=== PATIENT | female | born 1990 | race African-American/Black ===

== ENCOUNTER → 2016-06-11 | Outpatient (REF) | payer OTHER ==
[2016-06-11 13:43] LABS: ANION GAP 9 MEQ/L (8-16); BLOOD UREA NITROGEN 12 MG/DL (7-18); CARBON DIOXIDE LEVEL 26 MEQ/L (21-32); CHLORIDE LEVEL 105 MEQ/L (98-107); GLOMERULAR FILTRATION RATE > 60.0 (>60); GLUCOSE, FASTING 88 MG/DL (70-105); POTASSIUM SERUM 4.6 MEQ/L (3.5-5.1); SODIUM LEVEL 140 MEQ/L (136-145)
== END ==
LOC: M SFHCPLAZ 10:16
PROVIDERS: ATTEND Family Medicine
DX: Z11.3 Encounter for screening for infections with a predominantly sexual mode of transmission (principal); R04.2 Hemoptysis; R63.1 Polydipsia; R07.9 Chest pain, unspecified

== ENCOUNTER → 2016-06-18 | Outpatient (REF) | payer OTHER ==
[2016-06-18 16:06] LABS: IONIZED CALCIUM 4.9 MG/DL (4.5-5.3)
[2016-06-18 17:05] LABS: MAGNESIUM LEVEL 1.9 MG/DL (1.8-2.4)
== END ==
LOC: M SFHCPLAZ 12:39
PROVIDERS: ATTEND Family Medicine
DX: R25.2 Cramp and spasm (principal)

== ENCOUNTER → 2016-07-02 | Outpatient (REF) | payer OTHER | LOC: M SFHCPLAZ 09:29 | PROVIDERS: ATTEND Family Medicine | DX: R07.89 Other chest pain (principal) ==

== ENCOUNTER 2016-08-28 21:03 | Emergency (ER) | payer OTHER ==
[~2016-08-28] VITALS: Ht 175.3 cm; Wt 91.6 kg
[2016-08-28] MEDS ORDERED: SERT-155 PO (21:18)
[2016-08-28] MEDS ORDERED: RANI150T PO (21:18)
[2016-08-28] MEDS ORDERED: HYDR-3363 PO (22:42)
[2016-08-28] MEDS ORDERED: NAPROXEN 250 MG TAB PO ONE (22:45)
[2016-08-28] MEDS ORDERED: diazePAM 5 MG TAB PO ONE (22:45)
[2016-08-28 22:50] VITALS: BP 113/83
--- NOTE | 2016-08-29 21:41 | ECGEPIP ---
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
== END 2016-08-28 22:53 | disposition home or self-care (01) ==
LOC: M ED 21:03
DX: F41.1 Generalized anxiety disorder (principal); G89.29 Other chronic pain; M54.9 Dorsalgia, unspecified; M41.9 Scoliosis, unspecified; F43.10 Post-traumatic stress disorder, unspecified; G47.00 Insomnia, unspecified; Z79.899 Other long term (current) drug therapy; Z88.0 Allergy status to penicillin; Z87.891 Personal history of nicotine dependence

== ENCOUNTER 2017-07-30 19:00 | Emergency (ER) | payer SELFPAY, OTHER ==
[2017-07-30 19:37] LABS: VENOUS BASE EXCESS -1.8 (-2.0-2.0); VENOUS HCO3 21.7 MEQ/L (23.0-27.0); VENOUS PARTIAL PRESSURE CO2 33.1 mmHg (38.0-50.0); VENOUS PARTIAL PRESSURE O2 52.9 mmHg (30.0-50.0); VENOUS PH 7.435 UNITS (7.330-7.430); VENOUS STANDARD HCO3 22.8 MEQ/L; VENOUS TOTAL CO2 22.7 MEQ/L (24.0-28.0)
[2017-07-30 19:38] LABS: BASO % 0.4 % (0.0-1.0); EOS # 0.1 10^3/uL (0.0-0.50); HEMATOCRIT 34.9 % (36.0-47.0); IMMATURE GRANULOCYTE % 0.4 % (0-3.0); LYMPH # 2.9 10^3/uL (1.5-6.5); LYMPH % 26.6 % (24.0-44.0); MEAN CORPUSCULAR HEMOGLOBIN 30.2 pg (27.0-33.0); MEAN CORPUSCULAR HGB CONC 34.4 g/dl (32.0-36.5); MEAN CORPUSCULAR VOLUME 87.9 fl (80.0-96.0); MONO # 0.7 10^3/uL (0.0-0.8); MONO % 6.8 % (0.0-5.0); NEUTROPHILS # 7.1 10^3/uL (1.8-7.7); NEUTROPHILS % 64.8 % (36.0-66.0); PLATELET COUNT, AUTOMATED 258 10^3/uL (150-450); RED BLOOD COUNT 3.97 10^6/uL (4.00-5.40); RED CELL DISTRIBUTION WIDTH 12.5 % (11.5-14.5)
[2017-07-30] MEDS: LORazepam 2 MG/ML VIAL (J2060) IV (19:38)
[2017-07-30 19:56] LABS: ANION GAP 12 MEQ/L (8-16); BLOOD UREA NITROGEN 12 MG/DL (7-18); CALCIUM LEVEL 8.6 MG/DL (8.5-10.1); CARBON DIOXIDE LEVEL 22 MEQ/L (21-32); CHLORIDE LEVEL 105 MEQ/L (98-107); CREATININE FOR GFR 1.07 MG/DL (0.55-1.30); GLOMERULAR FILTRATION RATE > 60.0 (>60); GLUCOSE, FASTING 100 MG/DL (70-100); POTASSIUM SERUM 3.3 MEQ/L (3.5-5.1); SODIUM LEVEL 139 MEQ/L (136-145); THYROXINE (T4) 9.2 UG/DL (4.5-12.0)
== END 2017-07-30 22:32 | disposition home or self-care (01) ==
LOC: M ED 19:00
DX: F41.0 Panic disorder [episodic paroxysmal anxiety] (principal); R94.31 Abnormal electrocardiogram [ECG] [EKG]; F17.210 Nicotine dependence, cigarettes, uncomplicated; Z88.0 Allergy status to penicillin
CPT/HCPCS: J2060

== ENCOUNTER 2018-02-23 19:27 | Emergency (ER) | payer SELFPAY ==
[~2018-02-23] VITALS: Ht 175.3 cm; Wt 84.0 kg
[~2018-02-23 19:27] MED LIST: HYDR-3363 PO; RANI150T PO; SERT-155 PO
[2018-02-23] MEDS ORDERED: diphenhydrAMINE 50 MG CAP PO ONE (20:30)
[2018-02-23] MEDS ORDERED: ALBUTEROL 90 MCG/ACT 8GM HFA INHALER INH ONE (20:30)
[2018-02-23] MEDS ORDERED: BENA25CA4 PO (21:35)
[2018-02-23 21:43] VITALS: BP 136/82
== END 2018-02-23 21:45 | disposition home or self-care (01) ==
LOC: M ED 19:27
DX: J98.01 Acute bronchospasm (principal); T78.49XA Other allergy, initial encounter; X58.XXXA Exposure to other specified factors, initial encounter; Y92.89 Other specified places as the place of occurrence of the external cause; F43.10 Post-traumatic stress disorder, unspecified; G47.00 Insomnia, unspecified; K21.9 Gastro-esophageal reflux disease without esophagitis; Z88.0 Allergy status to penicillin; Z91.018 Allergy to other foods; F17.210 Nicotine dependence, cigarettes, uncomplicated

== ENCOUNTER → 2018-05-05 | Outpatient (REF) ==
[~2018-05-05] MED LIST changes: +BENA25CA4 PO
[2018-05-05 17:33] LABS: RUBELLA IgG QUALITATIVE IMMUNE (IMMUNE)
== END ==
LOC: M LAB 16:03
PROVIDERS: ATTEND Nurse Practitioner Adult Health
DX: Z02.89 Encounter for other administrative examinations (principal)

== ENCOUNTER 2018-09-20 18:52 | Emergency (ER) | payer SELFPAY ==
[~2018-09-20] VITALS: Ht 175.3 cm; Wt 94.1 kg
[2018-09-20] MEDS ORDERED: CLAR5TAB11 PO (19:11)
[2018-09-20] MEDS ORDERED: FAMOTIDINE IV BAG 20 MG in APPROPRIATE DILUENT 1 EA IV ONE (19:15)
[2018-09-20] MEDS ORDERED: ALBUTEROL SULFATE 2.5 MG/0.5 ML INH NEB SOLN INH ONE (19:15)
[2018-09-20] MEDS ORDERED: methylPREDNISolone INJ 125 MG/2 ML VIAL (J2930) IV ONE (19:15)
[2018-09-20] MEDS ORDERED: diphenhydrAMINE INJ 50MG/ML VIAL (J1200) IV ONE (19:15)
[2018-09-20 21:42] VITALS: BP 122/81
== END 2018-09-20 21:49 | disposition home or self-care (01) ==
LOC: M ED 18:52
DX: T78.40XA Allergy, unspecified, initial encounter (principal); Y92.9 Unspecified place or not applicable; Y93.9 Activity, unspecified; J45.909 Unspecified asthma, uncomplicated; Z72.0 Tobacco use; R06.02 Shortness of breath; Z79.899 Other long term (current) drug therapy; Z88.0 Allergy status to penicillin; Z91.018 Allergy to other foods
CPT/HCPCS: 93041; 94640; 94760; 96374; 96375; 99285; J1200; J2930

== ENCOUNTER 2018-12-18 12:16 | Emergency (ER) | payer OTHER, SELFPAY ==
[~2018-12-18] VITALS: Ht 175.3 cm; Wt 102.6 kg
[2018-12-18 12:16] VITALS: BP 126/88
[~2018-12-18 12:16] MED LIST changes: +CLAR5TAB11 PO; -SERT-155 PO; +SERT50TA29 PO
[2018-12-18] MEDS ORDERED: BACI500O21 TOP (12:54)
== END 2018-12-18 13:15 | disposition home or self-care (01) ==
LOC: M ED 12:16
DX: T24.011A Burn of unspecified degree of right thigh, initial encounter (principal); Y99.0 Civilian activity done for income or pay; T31.0 Burns involving less than 10% of body surface; X12.XXXA Contact with other hot fluids, initial encounter; Y92.233 Cafeteria of hospital as the place of occurrence of the external cause; Z88.0 Allergy status to penicillin; Z91.018 Allergy to other foods; F43.10 Post-traumatic stress disorder, unspecified; G47.00 Insomnia, unspecified; Z79.899 Other long term (current) drug therapy

== ENCOUNTER 2019-03-27 08:55 | Emergency (ER) | payer OTHER, SELFPAY ==
[~2019-03-27] VITALS: Ht 177.8 cm; Wt 107.5 kg
[~2019-03-27 08:55] MED LIST changes: +BACI500O21 TOP
[2019-03-27 09:46] LABS: BASO % 0.3 % (0.0-1.0); EOS # 0.2 10^3/uL (0.0-0.5); EOS % 1.6 % (0.0-3.0); HEMATOCRIT 37.9 % (36.0-47.0); HEMOGLOBIN 12.1 g/dl (12.0-15.5); LYMPH # 2.5 10^3/uL (1.5-5.0); LYMPH % 25.9 % (24.0-44.0); MEAN CORPUSCULAR HEMOGLOBIN 28.7 pg (27.0-33.0); MEAN CORPUSCULAR HGB CONC 31.9 g/dl (32.0-36.5); MEAN CORPUSCULAR VOLUME 89.8 fl (80.0-96.0); MONO # 0.6 10^3/uL (0.0-0.8); MONO % 6.3 % (0.0-5.0); NEUTROPHILS # 6.2 10^3/uL (1.5-8.5); NEUTROPHILS % 65.6 % (36.0-66.0); PLATELET COUNT, AUTOMATED 245 10^3/uL (150-450); RED BLOOD COUNT 4.22 10^6/uL (4.00-5.40); WHITE BLOOD COUNT 9.5 10^3/uL (4.0-10.0)
[2019-03-27 09:59] LABS: INFLUENZA A AMPLIFICATION NEGATIVE (NEGATIVE); INFLUENZA B AMPLIFICATION NEGATIVE (NEGATIVE)
--- NOTE | 2019-03-27 10:04 | REP ---
Chest x-ray: Two views. History: Chest discomfort . Comparison study: July 30, 2017 . Findings: The lungs are well inflated and free of infiltrate. The pleural angles are sharp. The heart size is normal. Pulmonary vasculature is not increased. No significant bony abnormality is seen. Impression: Negative chest x-ray. Electronically Signed by Mert Alvraez MD 03/27/2019 09:56 A
[2019-03-27 10:17] LABS: CK-MB VALUE MASS < 1.0 NG/ML (<3.6); CPK CREATINE PHOSPHOKINASE 155 U/L (26-192); MB/CK RELATIVE INDEX 0.65 (< OR =4); TROPONIN I < 0.02 NG/ML (< 0.10)
[2019-03-27 11:49] LABS: CK-MB VALUE MASS 1.1 NG/ML (<3.6); CPK CREATINE PHOSPHOKINASE 152 U/L (26-192); MB/CK RELATIVE INDEX 0.72 (< OR =4); TROPONIN I < 0.02 NG/ML (< 0.10)
[2019-03-27 12:52] LABS: CK-MB VALUE MASS < 1.0 NG/ML (<3.6); CPK CREATINE PHOSPHOKINASE 150 U/L (26-192); MB/CK RELATIVE INDEX 0.67 (< OR =4); TROPONIN I < 0.02 NG/ML (< 0.10)
[2019-03-27 13:14] VITALS: BP 127/88
--- NOTE | 2019-03-27 21:51 | ECGEPIP ---
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
== END 2019-03-27 13:44 | disposition home or self-care (01) ==
LOC: M ED 08:55
DX: R07.89 Other chest pain (principal); R11.2 Nausea with vomiting, unspecified; R19.7 Diarrhea, unspecified; Z20.9 Contact with and (suspected) exposure to unspecified communicable disease; J45.909 Unspecified asthma, uncomplicated; F41.9 Anxiety disorder, unspecified; F43.10 Post-traumatic stress disorder, unspecified; G47.00 Insomnia, unspecified; F17.200 Nicotine dependence, unspecified, uncomplicated; Z88.0 Allergy status to penicillin; Z91.018 Allergy to other foods

== ENCOUNTER 2019-05-04 20:12 | Emergency (ER) | payer OTHER ==
[~2019-05-04] VITALS: Ht 175.3 cm; Wt 100.0 kg
[2019-05-04] MEDS ORDERED: CLAR10CA3 PO (20:49)
--- NOTE | 2019-05-04 21:32 | REP ---
Clinical: Trauma. Technique: AP, lateral, bilateral oblique and sunrise views right knee . Findings: The osseous structures and joint spaces are intact and normal. There is no evidence for acute fracture or dislocation. No joint effusion is appreciated. Surrounding soft tissues are unremarkable. No subcutaneous emphysema or radiodense foreign body. Impression: Normal examination. No acute fracture or dislocation. Electronically Signed by Gadiel Goodwin MD 05/04/2019 09:23 P
--- NOTE | 2019-05-04 21:34 | REP ---
Clinical: Trauma. Technique: AP, lateral, bilateral oblique views right foot . Findings: There is no evidence for acute fracture or dislocation. Hallux valgus deformity and subtle chronic changes along the medial aspect of the first metatarsal head. Surrounding soft tissues are unremarkable. No subcutaneous emphysema or radiodense foreign body. Impression: Hallux valgus deformity. No acute fracture or dislocation. Electronically Signed by Gadiel Goodwin MD 05/04/2019 09:25 P
--- NOTE | 2019-05-04 21:38 | REP ---
Clinical: Trauma. Technique: AP, lateral, bilateral oblique views of the right ankle. Findings: Mild swelling. No acute fracture or dislocation. Ankle mortise intact. No subcutaneous emphysema or foreign body. Impression: Mild swelling. No acute fracture or dislocation. Electronically Signed by Gadiel Goodwin MD 05/04/2019 09:29 P
[2019-05-04] MEDS ORDERED: ACETAMINOPHEN 325 MG TAB PO ONE (21:45)
[2019-05-04] MEDS ORDERED: LIDOCAINE 4% CREAM 5GM (LMX4) TOP ONE (21:45)
[2019-05-04] MEDS ORDERED: IBUPROFEN 600 MG TAB PO ONE (21:45)
[2019-05-04 22:09] VITALS: BP 128/88
== END 2019-05-04 22:12 | disposition home or self-care (01) ==
LOC: M ED 20:12
DX: S89.91XA Unspecified injury of right lower leg, initial encounter (principal); M25.461 Effusion, right knee; W19.XXXA Unspecified fall, initial encounter; Y92.89 Other specified places as the place of occurrence of the external cause; Y93.9 Activity, unspecified; Y99.0 Civilian activity done for income or pay; M20.11 Hallux valgus (acquired), right foot; F17.200 Nicotine dependence, unspecified, uncomplicated; Z88.0 Allergy status to penicillin; Z91.018 Allergy to other foods

== ENCOUNTER 2019-06-14 16:07 | Emergency (ER) | payer OTHER ==
[~2019-06-14] VITALS: Ht 177.8 cm; Wt 103.2 kg
[~2019-06-14 16:07] MED LIST changes: +CLAR10CA3 PO
[2019-06-14] MEDS ORDERED: SULF1TAB93 (16:12)
[2019-06-14 16:55] LABS: BASO # 0.1 10^3/uL (0.0-0.2); BASO % 0.4 % (0.0-1.0); EOS # 0.1 10^3/uL (0.0-0.5); HEMATOCRIT 40.6 % (36.0-47.0); HEMOGLOBIN 13.6 g/dl (12.0-15.5); LYMPH # 2.4 10^3/uL (1.5-5.0); MEAN CORPUSCULAR HEMOGLOBIN 29.4 pg (27.0-33.0); MEAN CORPUSCULAR HGB CONC 33.5 g/dl (32.0-36.5); MEAN CORPUSCULAR VOLUME 87.9 fl (80.0-96.0); MONO # 0.8 10^3/uL (0.0-0.8); MONO % 6.4 % (0.0-5.0); NEUTROPHILS # 8.7 10^3/uL (1.5-8.5); NEUTROPHILS % 71.9 % (36.0-66.0); PLATELET COUNT, AUTOMATED 350 10^3/uL (150-450); RED BLOOD COUNT 4.62 10^6/uL (4.00-5.40); WHITE BLOOD COUNT 12.1 10^3/uL (4.0-10.0)
[2019-06-14 17:23] LABS: ALT/SGPT 16 U/L (12-78); AMYLASE 77 U/L (25-115); BILIRUBIN,DIRECT 0.2 MG/DL (0.0-0.2); BILIRUBIN,TOTAL 0.5 MG/DL (0.2-1.0); BLOOD UREA NITROGEN 12 MG/DL (7-18); CARBON DIOXIDE LEVEL 27 MEQ/L (21-32); CHLORIDE LEVEL 107 MEQ/L (98-107); CREATININE FOR GFR 1.28 MG/DL (0.55-1.30); GLOMERULAR FILTRATION RATE > 60.0 (>60); GLUCOSE, FASTING 87 MG/DL (70-100); LIPASE 54 U/L (73-393); POTASSIUM SERUM 4.6 MEQ/L (3.5-5.1); SODIUM LEVEL 140 MEQ/L (136-145); TOTAL PROTEIN 8.9 GM/DL (6.4-8.2)
[2019-06-14] MEDS ORDERED: ISOVUE-370 76% 100ML VIAL As Ordered ONE (17:40)
[2019-06-14] MEDS ORDERED: NS 1,000 ML IV ONE (17:45)
[2019-06-14] MEDS ORDERED: MORPHINE 4 MG/ML 1ML VIAL/SYRINGE (J2270) IV ONE (17:45)
[2019-06-14] MEDS ORDERED: ONDANSETRON 4MG/2ML VIAL IV ONE (18:15)
--- NOTE | 2019-06-14 18:44 | REPVR ---
PROCEDURE INFORMATION: Exam: CT Abdomen And Pelvis With Contrast Exam date and time: 06/14/2019 5:43 PM Age: 29 years old Clinical indication: Abdominal pain; Localized; Lower; Additional info: Lower abd pain, leukocytosis TECHNIQUE: Imaging protocol: Computed tomography of the abdomen and pelvis with intravenous contrast. Radiation optimization: All CT scans at this facility use at least one of these dose optimization techniques: automated exposure control; mA and/or kV adjustment per patient size (includes targeted exams where dose is matched to clinical indication); or iterative reconstruction. Contrast material: ISOVUE 370; Contrast volume: 100 ml; Contrast route: IV; COMPARISON: NE Abdomen,Flat Plate KUB 06/14/2019 4:36 PM FINDINGS: Liver: 1.8 cm low-density lesion right lobe of the liver segment 8. 4 mm low-density lesion right lobe of the liver near the dome segment 7. 4.8 mm low-density lesion lateral segment left lobe of the liver. 6 mm low-density lesion right lobe of the liver segment 6. 2 mm low-density lesion right lobe of the liver segment 5. Gallbladder and bile ducts: Normal. No calcified stones. No ductal dilation. Pancreas: Normal. No ductal dilation. Spleen: 9 mm accessory spleen anterior and inferior to the spleen. Adrenals: Normal. No mass. Kidneys and ureters: Normal. No hydronephrosis. Stomach and bowel: There is a moderate to large amount of stool within the colon. Appendix: No evidence of appendicitis. Intraperitoneal space: Unremarkable. No free air. No significant fluid collection. Vasculature: Unremarkable. No abdominal aortic aneurysm. Lymph nodes: Unremarkable. No enlarged lymph nodes. Bladder: Unremarkable as visualized. Reproductive: The uterus is enlarged and globular in configuration with a 4.4 cm mass the level of the fundus/anterior uterine corpus suggesting fibroid formation. Bones/joints: 6 mm area sclerosis in the L4 vertebral body. Soft tissues: Umbilical hernia containing fat measuring 5 mm at the base. No signs of strangulation. IMPRESSION: 1. No acute findings. 2. Several liver lesions with the largest measuring 1.8 cm in greatest diameter. MR of the liver recommended for definitive characterization. 3. Uterine fibroids. 4. Moderate to large amount of stool in the colon. 5. 6 mm area sclerosis in the L4 vertebral body. This is nonspecific. In a low risk individual, this is likely a bone island. Clinical correlation needed. Electronically signed by: Mary Salcido On 06/14/2019 18:43:51 PM
[2019-06-14] MEDS ORDERED: ONDA4TAB6 PO (19:04)
[2019-06-14] MEDS ORDERED: MIRA3350 PO (19:04)
[2019-06-14 19:16] VITALS: BP 115/79
--- NOTE | 2019-06-15 10:18 | REP ---
KUB ABDOMEN/PELVIS: KUB films of abdomen/pelvis performed. Bowel gas pattern is normal. There is no evidence of bowel obstruction. No dilated small bowel loops are seen. No abnormal calcifications are seen. IMPRESSION: Normal bowel gas pattern. Electronically Signed by Vinny Thao MD 06/15/2019 11:55 A
== END 2019-06-14 19:19 | disposition home or self-care (01) ==
LOC: M ED 16:07
DX: K59.00 Constipation, unspecified (principal); K76.89 Other specified diseases of liver; D25.9 Leiomyoma of uterus, unspecified; E73.9 Lactose intolerance, unspecified; Z88.0 Allergy status to penicillin; Z79.899 Other long term (current) drug therapy
CPT/HCPCS: 74018; 74177; 80048; 80076; 82150; 83690; 85025; 96361; 96374; 96375; 99284; J2270; J2405; Q9967

== ENCOUNTER → 2019-07-01 | Outpatient (CLI) | payer OTHER ==
[~2019-07-01] MED LIST changes: +MIRA3350 PO; +ONDA4TAB6 PO; +SULF1TAB93
[2019-07-01 12:06] LABS: BASO % 0.2 % (0.0-1.0); EOS # 0.1 10^3/uL (0.0-0.5); EOS % 1.2 % (0.0-3.0); HEMATOCRIT 39.2 % (36.0-47.0); HEMOGLOBIN 12.8 g/dl (12.0-15.5); LYMPH # 1.9 10^3/uL (1.5-5.0); LYMPH % 19.1 % (24.0-44.0); MEAN CORPUSCULAR HEMOGLOBIN 29.4 pg (27.0-33.0); MEAN CORPUSCULAR HGB CONC 32.7 g/dl (32.0-36.5); MEAN CORPUSCULAR VOLUME 89.9 fl (80.0-96.0); MONO # 0.6 10^3/uL (0.0-0.8); MONO % 6.3 % (0.0-5.0); NEUTROPHILS # 7.3 10^3/uL (1.5-8.5); NEUTROPHILS % 72.9 % (36.0-66.0); PLATELET COUNT, AUTOMATED 272 10^3/uL (150-450); RED BLOOD COUNT 4.36 10^6/uL (4.00-5.40)
[2019-07-01 12:35] LABS: C REACTIVE PROTEIN QUANTITATIV < 0.30 MG/DL (0.00-0.30); RHEUMATOID FACTOR QUANT < 10.0 IU/ML (<15.0); URIC ACID 4.8 MG/DL (2.6-6.0)
[2019-07-03 00:10] LABS: ANTINUCLEAR ANTIBODIES DIRECT Negative (Negative); Lyme Disease IgG/IgM Antibodie <0.91 ISR (0.00-0.90); Lyme Disease IgM Ab Quantitati <0.80 index (0.00-0.79)
== END ==
LOC: M LAB 11:36
PROVIDERS: ATTEND Physician Assistant Surgical
DX: M17.11 Unilateral primary osteoarthritis, right knee (principal)

== ENCOUNTER → 2019-09-26 | Emergency (ER) | payer OTHER ==
[~2019-09-26] MED LIST changes: +ACETAMINOPHEN 325 MG TAB As Ordered ONE; +ACETAMINOPHEN 325 MG TAB ONE
== END | disposition home or self-care (01) ==
LOC: M ED 19:26
DX: M79.661 Pain in right lower leg (principal); Z88.0 Allergy status to penicillin; Z88.1 Allergy status to other antibiotic agents

== ENCOUNTER → 2019-09-30 | Emergency (ER) | payer OTHER ==
[~2019-09-30] MED LIST changes: -ACETAMINOPHEN 325 MG TAB As Ordered ONE; -ACETAMINOPHEN 325 MG TAB ONE; +ACETAMINOPHEN 500 MG TAB As Ordered ONE; +ACETAMINOPHEN 500 MG TAB ONE; +predniSONE 20 MG TAB As Ordered ONE; +predniSONE 20 MG TAB ONE
--- NOTE | 2019-10-31 09:58 | ECGEPIP ---
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
[2019-11-02 14:37] LABS: BASO % 0.3 % (0.0-1.0); EOS # 0.2 10^3/uL (0.0-0.5); EOS % 1.5 % (0.0-3.0); HEMATOCRIT 42.2 % (36.0-47.0); HEMOGLOBIN 13.7 g/dl (12.0-15.5); LYMPH # 2.4 10^3/uL (1.5-5.0); LYMPH % 24.3 % (24.0-44.0); MEAN CORPUSCULAR HEMOGLOBIN 29.1 pg (27.0-33.0); MEAN CORPUSCULAR HGB CONC 32.5 g/dl (32.0-36.5); MEAN CORPUSCULAR VOLUME 89.6 fl (80.0-96.0); MONO # 0.6 10^3/uL (0.0-0.8); MONO % 6.5 % (0.0-5.0); NEUTROPHILS # 6.6 10^3/uL (1.5-8.5); NEUTROPHILS % 67.1 % (36.0-66.0); PLATELET COUNT, AUTOMATED 331 10^3/uL (150-450); RED BLOOD COUNT 4.71 10^6/uL (4.00-5.40); WHITE BLOOD COUNT 9.8 10^3/uL (4.0-10.0)
[2019-11-14 13:05] LABS: ALBUMIN 3.7 GM/DL (3.2-5.2); ALT/SGPT 17 U/L (12-78); BILIRUBIN,TOTAL 0.6 MG/DL (0.2-1.0); BLOOD UREA NITROGEN 12 MG/DL (7-18); CALCIUM LEVEL 9.3 MG/DL (8.5-10.1); CARBON DIOXIDE LEVEL 30 MEQ/L (21-32); CHLORIDE LEVEL 107 MEQ/L (98-107); CK-MB VALUE MASS < 1.0 NG/ML (<3.6); CPK CREATINE PHOSPHOKINASE 99 U/L (26-192); CREATININE FOR GFR 1.18 MG/DL (0.55-1.30); GLOMERULAR FILTRATION RATE > 60.0 (>60); GLUCOSE, FASTING 80 MG/DL (70-100); MB/CK RELATIVE INDEX 1.01 (< OR =4); POTASSIUM SERUM 4.1 MEQ/L (3.5-5.1); SODIUM LEVEL 142 MEQ/L (136-145); TOTAL PROTEIN 8.2 GM/DL (6.4-8.2); TROPONIN I < 0.02 NG/ML (< 0.10)
== END | disposition home or self-care (01) ==
LOC: M ED 19:27
DX: J45.901 Unspecified asthma with (acute) exacerbation (principal); F17.210 Nicotine dependence, cigarettes, uncomplicated; Z11.59 Encounter for screening for other viral diseases

== ENCOUNTER 2019-10-25 17:24 | Emergency (ER) | payer OTHER ==
[~2019-10-25] VITALS: Ht 177.8 cm; Wt 106.9 kg
[~2019-10-25 17:24] MED LIST changes: -ACETAMINOPHEN 500 MG TAB As Ordered ONE; -ACETAMINOPHEN 500 MG TAB ONE; -predniSONE 20 MG TAB As Ordered ONE; -predniSONE 20 MG TAB ONE
[2019-10-25 17:25] VITALS: BP 135/81
== END 2019-10-25 18:43 | disposition home or self-care (01) ==
LOC: M ED 17:24
DX: Z20.828 Contact with and (suspected) exposure to other viral communicable diseases (principal); Z11.59 Encounter for screening for other viral diseases; J45.909 Unspecified asthma, uncomplicated; F43.10 Post-traumatic stress disorder, unspecified; G47.00 Insomnia, unspecified; Z88.0 Allergy status to penicillin; Z88.8 Allergy status to other drugs, medicaments and biological substances; Z91.018 Allergy to other foods
CPT/HCPCS: 99282; U0002